=== PATIENT | female | born 1985 | race Caucasian/White ===

== ENCOUNTER 2018-06-20 16:45 | Emergency (ER) | payer BC ==
--- NOTE | 2018-06-20 17:35 | EDM.PDOC ---
ED HPI GENERAL MEDICAL PROBLEM - General Chief Complaint: ENT Problem Stated Complaint: SORE THROAT Time Seen by Provider: 06/20/18 17:00 - History of Present Illness INITIAL COMMENTS - FREE TEXT/NARRATIVE: HISTORY AND PHYSICAL: History of present illness: Patient 32-year-old return of sore throat she denies fever chills nausea vomiting or other complaints Review of systems: As per history of present illness and below otherwise all systems reviewed and negative. Past medical history: As per history of present illness and as reviewed below otherwise noncontributory. Surgical history: As per history of present illness and as reviewed below otherwise noncontributory. Social history: No reported history of drug or alcohol abuse. Family history: As per history of present illness and as reviewed below otherwise noncontributory. Physical exam: HEENT: Atraumatic, normocephalic, pupils reactive, negative for conjunctival pallor or scleral icterus, mucous membranes moist, throat clear, neck supple, nontender, trachea midline. Lungs: Clear to auscultation, breath sounds equal bilaterally, chest nontender. Heart: S1S2, regular, negative for clicks, rubs, or JVD. Abdomen: Soft, nondistended, nontender. Negative for masses or hepatosplenomegaly. Negative for costovertebral tenderness. Pelvis: Stable nontender. Genitourinary: Deferred. Rectal: Deferred. Extremities: Atraumatic, negative for cords or calf pain. Neurovascular unremarkable. Neuro: Awake, alert, oriented. Cranial nerves II through XII unremarkable. Cerebellum unremarkable. Motor and sensory unremarkable throughout. Exam nonfocal. Diagnostics: Rapid strep Therapeutics: None Impression: #1 sore throat Definitive disposition and diagnosis as appropriate pending reevaluation and review of above. 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 Cervical repair Musculoskeletal History: Reports: None Neurological History: Reports: None Psychiatric History: Reports: Anxiety Endocrine/Metabolic History: Reports: Hyperthyroidism, Obesity/BMI 30+, Other ( See Below) Other Endocrine/Metabolic History: Thyroid radiated 2017 Hematologic History: Reports: None Immunologic History: Reports: None Oncologic (Cancer) History: Reports: None Dermatologic History: Reports: None - Infectious Disease History Infectious Disease History: Reports: Chicken Pox - Past Surgical History HEENT Surgical History: Reports: Oral Surgery, Other (See Below) Other HEENT Surgeries/Procedures: left retina Endocrine Surgical History: Reports: None Social & Family History - Family History Family Medical History: Noncontributory Cardiac: Reports: Heart Failure, Other (See Below) Other Cardiac Family History: COPD OBGYN: Reports: Psychiatric: Reports: Anxiety Endocrine/Metabolic: Reports: Diabetes, type II, Hyperthyroidism Immunologic: Reports: SLE Oncologic: Reports: Renal - Tobacco Use Smoking Status *Q: Never Smoker - Caffeine Use Caffeine Use: Reports: Coffee - Recreational Drug Use Recreational Drug Use: No ED ROS GENERAL - Review of Systems Review Of Systems: ROS reveals no pertinent complaints other than HPI. ED EXAM, GENERAL - Physical Exam Exam: See Below (See dictation) Course - Vital Signs Last Recorded V/S: Last Vital Signs Temp 36.8 C 06/20/18 17:07 Pulse 93 06/20/18 17:07 Resp 18 06/20/18 17:07 BP 136/85 06/20/18 17:07 Pulse Ox 97 06/20/18 17:07 - Orders/Labs/Meds Orders: Active Orders 24 hr Category Date Time Status STREP SCRN A RAPID W CULT CONF [RM] Stat Lab 06/20/18 17:01 Received Departure - Departure Time of Disposition: 17:34 Disposition: Home, Self-Care 01 Condition: Good Clinical Impression: Sore throat - Discharge Information Referrals: PCP,None [Primary Care Provider] - Additional Instructions: The following information is given to patients seen in the emergency department who are being discharged to home. This information is to outline your options for follow-up care. We provide all patients seen in our emergency department with a follow-up referral. The need for follow-up, as well as the timing and circumstances, are variable depending upon the specifics of your emergency department visit. If you don't have a primary care physician on staff, we will provide you with a referral. We always advise you to contact your personal physician following an emergency department visit to inform them of the circumstance of the visit and for follow-up with them and/or the need for any referrals to a consulting specialist. The emergency department will also refer you to a specialist when appropriate. This referral assures that you have the opportunity for followup care with a specialist. All of these measure are taken in an effort to provide you with optimal care, which includes your followup. Under all circumstances we always encourage you to contact your private physician who remains a resource for coordinating your care. When calling for followup care, please make the office aware that this follow-up is from your recent emergency room visit. If for any reason you are refused follow-up, please contact the [facility] emergency department at and asked to speak to the emergency department charge nurse. Tylenol as directed follow-up primary medical doctor return as needed as discussed - My Orders Last 24 Hours: My Active Orders 06/20/18 17:01 STREP SCRN A RAPID W CULT CONF [RM] Stat - Assessment/Plan Last 24 Hours: My Active Orders 06/20/18 17:01 STREP SCRN A RAPID W CULT CONF [RM] Stat
== END 2018-06-20 18:02 | disposition home or self-care (01) ==
LOC: MW.ED 16:45
DX: J02.9 Acute pharyngitis, unspecified (principal)
CPT/HCPCS: 87081; 87880-QW; 99282; 99283

== ENCOUNTER 2018-12-08 16:44 | Emergency (ER) | payer SELFPAY ==
--- NOTE | 2018-12-08 16:47 | EDM.PDOC ---
ED HPI GENERAL MEDICAL PROBLEM - General Stated Complaint: CHEST PAINS Time Seen by Provider: 12/08/18 16:44 Source of Information: Reports: Patient History Limitations: Reports: No Limitations - History of Present Illness INITIAL COMMENTS - FREE TEXT/NARRATIVE: HISTORY AND PHYSICAL: History of present illness: Patient is a 33-year-old female who presents to the emergency room with complaints of left chest wall pain that is near the axilla. She states pain has been ongoing for the past 2-3 days, worse today. Does have some upper back pain and intermittent subjective tingling/weakness of the left upper extremity. States nothing makes the pain better or worse. Pain is not reproducible. No rashes or lesions noted with this. Patient denies any fever, chills, headache, change in vision, syncope or near syncope. Denies any shortness of breath or cough. Denies any abdominal pain, nausea, vomiting, diarrhea, constipation or dysuria. Has not noted any blood in urine or stool. Patient has been eating and drinking appropriately. Patient has had no recent travel and does not take any hormones. Review of systems: As per history of present illness and below otherwise all systems reviewed and negative. Past medical history: As per history of present illness and as reviewed below otherwise noncontributory. Surgical history: As per history of present illness and as reviewed below otherwise noncontributory. Social history: See social history for further information Family history: As per history of present illness and as reviewed below otherwise noncontributory. Physical exam: General: Well-developed and well-nourished 33-year-old female. Alert and oriented. Nontoxic appearing and in no acute distress. HEENT: Atraumatic, normocephalic, pupils equal and reactive bilaterally, negative for conjunctival pallor or scleral icterus, mucous membranes moist, trachea midline. No drooling or trismus noted. No meningeal signs. No hot potato voice noted. Lungs: Clear to auscultation, breath sounds equal bilaterally, chest nontender. Heart: S1S2, regular rate and rhythm without overt murmur Abdomen: Soft, nondistended, nontender. Negative for masses or hepatosplenomegaly. Negative for costovertebral tenderness. Pelvis: Stable nontender. Skin: Intact, warm, dry. No lesions or rashes noted. Extremities: Atraumatic, moves all extremities per self without difficulty or deficits, negative for cords or calf pain. Neurovascular unremarkable. Neuro: Awake, alert, oriented. Cranial nerves II through XII unremarkable. Cerebellum unremarkable. Motor and sensory unremarkable throughout. Exam nonfocal. Notes: Toradol IM was offered; patient declines. She states she currently is having no pain. Asymptomatic. Chest x-ray shows no significant findings. Lab work is unremarkable, with the exception of low thyroid hormone. She states that her primary care provider did just recently decreased her thyroid as this level has been low. She will follow- up with her primary care provider regarding this. She remains asymptomatic during her ER visit. Vital signs are stable. Supportive care measures were reviewed and discussed. Voices understanding and is agreeable to plan of care. Denies any further questions or concerns at this time. Diagnostics: CBC, CMP, D.Dimer, TSH, CXR Therapeutics: Declined Prescription: Diclofenac (#30) Impression: Chest pain, nonspecific Low TSH Plan: 1. May alternate ice and/or heat for comfort purposes. 2. Tylenol and/or ibuprofen as needed for pain management. You may use diclofenac as needed, this is an anti-inflammatory so do not take any additional NSAID such as ibuprofen or Aleve while taking this medication. 3. Please follow-up with your primary care provider as we discussed. Return to the ED as needed and as discussed. Definitive disposition and diagnosis as appropriate pending reevaluation and review of above. Left Chest Pain Score (Numeric/FACES): 4 - Related Data Allergies Allergy/AdvReac Type Severity Reaction Status Date / Time No Known Allergies Allergy Verified 06/20/18 17:10 Home Meds: Home Meds Levothyroxine [Levothroid] 100 tab PO DAILY 06/20/18 [History] Diclofenac Sodium [Voltaren] 75 mg PO BIDMEALS PRN #30 tab.cr 12/08/18 [Rx] Past Medical History HEENT History: Reports: Retinal Detachment, Other (See Below) Other HEENT History: wears glasses, laser to right eye Cardiovascular History: Reports: None Respiratory History: Reports: None Gastrointestinal History: Reports: GERD Genitourinary History: Reports: None 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 Cervical repair Musculoskeletal History: Reports: None Neurological History: Reports: None Psychiatric History: Reports: Anxiety Endocrine/Metabolic History: Reports: Hyperthyroidism, Obesity/BMI 30+, Other ( See Below) Other Endocrine/Metabolic History: Thyroid radiated 2017 Hematologic History: Reports: None Immunologic History: Reports: None Oncologic (Cancer) History: Reports: None Dermatologic History: Reports: None - Infectious Disease History Infectious Disease History: Reports: Chicken Pox - Past Surgical History HEENT Surgical History: Reports: Oral Surgery, Other (See Below) Other HEENT Surgeries/Procedures: left retina Endocrine Surgical History: Reports: None Social & Family History - Family History Family Medical History: Noncontributory Cardiac: Reports: Heart Failure, Other (See Below) Other Cardiac Family History: COPD OBGYN: Reports: Psychiatric: Reports: Anxiety Endocrine/Metabolic: Reports: Diabetes, type II, Hyperthyroidism Immunologic: Reports: SLE Oncologic: Reports: Renal - Caffeine Use Caffeine Use: Reports: Coffee ED ROS GENERAL - Review of Systems Review Of Systems: ROS reveals no pertinent complaints other than HPI. ED EXAM, GENERAL - Physical Exam Exam: See Below (See Dictation) Course - Vital Signs Last Recorded V/S: Last Vital Signs Temp 97.1 F 12/08/18 16:47 Pulse 73 12/08/18 16:47 Resp 16 12/08/18 16:47 BP 131/85 12/08/18 16:47 Pulse Ox 96 12/08/18 16:47 - Orders/Labs/Meds Orders: Active Orders 24 hr Category Date Time Status EKG Documentation Completion [RC] STAT Care 12/08/18 16:50 Active Labs: Laboratory Tests 12/08/18 12/08/18 12/08/18 Range/Units 17:36 17:36 17:36 WBC 6.43 (4.0-11.0) K/uL RBC 4.28 L (4.30-5.90) M/uL Hgb 13.3 (12.0-16.0) g/dL Hct 39.4 (36.0-46.0) % MCV 92.1 (80.0-98.0) fL MCH 31.1 (27.0-32.0) pg MCHC 33.8 (31.0-37.0) g/dL RDW Std Deviation 49.0 (28.0-62.0) fl RDW Coeff of Denia 15 (11.0-15.0) % Plt Count 186 (150-400) K/uL MPV 10.40 (7.40-12.00) fL Neut % (Auto) 59.0 (48.0-80.0) % Lymph % (Auto) 30.8 (16.0-40.0) % [place] % (Auto) 7.9 (0.0-15.0) % Eos % (Auto) 2.0 (0.0-7.0) % Baso % (Auto) 0.3 (0.0-1.5) % Neut # (Auto) 3.8 (1.4-5.7) K/uL Lymph # (Auto) 2.0 (0.6-2.4) K/uL [place] # (Auto) 0.5 (0.0-0.8) K/uL Eos # (Auto) 0.1 (0.0-0.7) K/uL Baso # (Auto) 0.0 (0.0-0.1) K/uL Nucleated RBC % 0.0 /100WBC Nucleated RBCs # 0 K/uL D-Dimer, Quantitative 0.39 (0.0-0.50) mg/L FEU Sodium 141 (136-145) mmol/L Potassium 3.8 (3.5-5.1) mmol/L Chloride 104 (98-107) mmol/L Carbon Dioxide 27.8 (21.0-32.0) mmol/L BUN 10 (7.0-18.0) mg/dL Creatinine 0.6 (0.6-1.0) mg/dL Est Cr Clr Drug Dosing 103.50 mL/min Estimated GFR (MDRD) > 60.0 ml/min Glucose 88 (74-106) mg/dL Calcium 9.2 (8.5-10.1) mg/dL Total Bilirubin 0.2 (0.2-1.0) mg/dL AST 24 (15-37) IU/L ALT 33 (14-63) IU/L Alkaline Phosphatase 119 H (46-116) U/L Total Protein 7.1 (6.4-8.2) g/dL Albumin 3.6 (3.4-5.0) g/dL Globulin 3.5 (2.6-4.0) g/dL Albumin/Globulin Ratio 1.0 (0.9-1.6) TSH 3rd Generation 0.05 L (0.36-3.74) uIU/mL Meds: Medications Discontinued Medications Generic Name Dose Route Start Last Admin Trade Name Freq PRN Reason Stop Dose Admin Ketorolac Tromethamine 60 mg 12/08/18 16:56 Toradol IM 12/08/18 16:57 ONETIME ONE Departure - Departure Time of Disposition: 18:30 Disposition: Home, Self-Care 01 Clinical Impression: Nonspecific chest pain, Low TSH level Prescriptions: Diclofenac Sodium [Voltaren] 75 mg PO BIDMEALS PRN #30 tab.cr PRN Reason: Pain Instructions: Nonspecific Chest Pain, [id number] Referrals: PCP,None [Primary Care Provider] - Additional Instructions: The following information is given to patients seen in the emergency department who are being discharged to home. This information is to outline your options for follow-up care. We provide all patients seen in our emergency department with a follow-up referral. The need for follow-up, as well as the timing and circumstances, are variable depending upon the specifics of your emergency department visit. If you don't have a primary care physician on staff, we will provide you with a referral. We always advise you to contact your personal physician following an emergency department visit to inform them of the circumstance of the visit and for follow-up with them and/or the need for any referrals to a consulting specialist. The emergency department will also refer you to a specialist when appropriate. This referral assures that you have the opportunity for follow-up care with a specialist. All of these measure are taken in an effort to provide you with optimal care, which includes your follow-up. Under all circumstances we always encourage you to contact your private physician who remains a resource for coordinating your care. When calling for follow-up care, please make the office aware that this follow-up is from your recent emergency room visit. If for any reason you are refused follow-up, please contact the [facility] Emergency Department at and asked to speak to the emergency department charge nurse. [facility] Primary Care [address] [place] [id number] [place] [address] 1. May alternate ice and/or heat for comfort purposes. 2. Tylenol and/or ibuprofen as needed for pain management. You may use diclofenac as needed, this is an anti-inflammatory so do not take any additional NSAID such as ibuprofen or Aleve while taking this medication. 3. Please follow-up with your primary care provider as we discussed. Return to the ED as needed and as discussed. - My Orders Last 24 Hours: My Active Orders 12/08/18 16:50 EKG Documentation Completion [RC] STAT - Assessment/Plan Last 24 Hours: My Active Orders 12/08/18 16:50 EKG Documentation Completion [RC] STAT
[2018-12-08] MEDS ORDERED: Ketorolac 60 MG/2 ML SDV IM ONE (16:56)
--- NOTE | 2018-12-08 17:35 | CR ---
INDICATION: Chest pain. Family hx of cardiac disease TECHNIQUE: Chest 2 views. COMPARISON: None. FINDINGS: Cardiovascular and mediastinum: Heart size and vasculature are normal in caliber and appearance. Mediastinum is within normal limits. Lungs and pleural spaces: Lungs are clear. No sign of infiltrate or mass. No sign of pleural effusion. No pneumothorax. Bones and soft tissues: No significant findings. IMPRESSION: Unremarkable chest. Dictated by: Johnathan Alvarado MD @ 12/08/2018 17:34:38 (Electronically Signed)
[2018-12-08 18:17] LABS: BLOOD UREA NITROGEN,BUN 10 mg/dL (7.0-18.0); CARBON DIOXIDE,CO2 27.8 mmol/L (21.0-32.0); CHLORIDE,CL 104 mmol/L (98-107); GLUCOSE RANDOM 88 mg/dL (74-106); POTASSIUM,K 3.8 mmol/L (3.5-5.1); SODIUM,NA 141 mmol/L (136-145)
== END 2018-12-08 18:35 | disposition home or self-care (01) ==
LOC: MW.ED 16:44
DX: R07.9 Chest pain, unspecified (principal); R94.6 Abnormal results of thyroid function studies; E05.90 Thyrotoxicosis, unspecified without thyrotoxic crisis or storm; Z79.899 Other long term (current) drug therapy
CPT/HCPCS: 36415; 71046; 71046-26; 80053; 84443; 85025; 85379; 93005; 99284; 99285-25